=== PATIENT | male | born 1990 | race African-American/Black ===

== ENCOUNTER 2018-12-07 14:02 | Emergency (ER) | payer MEDICAID ==
[~2018-12-07] VITALS: Ht 170.2 cm; Wt 58.0 kg
[2018-12-07 16:58] VITALS: BP 123/76
== END 2018-12-07 16:59 | disposition home or self-care (01) ==
LOC: ER 14:02
DX: L70.0 Acne vulgaris (principal)
CPT/HCPCS: 99283